=== PATIENT | female | born 1950 | race Caucasian/White ===

== ENCOUNTER 2023-08-27 08:10 | Day surgery (SDC) | payer MEDICARE, BC ==
[2023-08-27] VITALS (13 sets, daily range): BP systolic 102–131; BP diastolic 42–74; PULSE 52–63; RESP 14–20; TEMP 98; O2SAT 94–96
[~2023-08-27] VITALS: Ht 162.6 cm; Wt 77.3 kg
[2023-08-27 08:55] LABS: BASOPHILS % (AUTO) 0.5 % (0-1); EOSINOPHILS # (AUTO) 0.1 X10'3 (0-0.9); EOSINOPHILS % (AUTO) 0.9 % (0-6); HEMATOCRIT 42.7 % (35.0-45.0); HEMOGLOBIN 14.4 g/dl (12.0-16.0); LYMPHOCYTES # (AUTO) 1.9 X10'3 (1.1-4.8); LYMPHOCYTES % (AUTO) 27.4 % (21-51); MEAN CORPUSCULAR HEMOGLOBIN 30.6 PG (27.0-31.0); MEAN CORPUSCULAR HGB CONC 33.7 g/dL (33.0-36.5); MEAN CORPUSCULAR VOLUME 90.8 FL (78-98); MEAN PLATELET VOLUME 7.6 FL (7.4-10.4); MONOCYTES # (AUTO) 0.5 X10'3 (0-0.9); MONOCYTES % (AUTO) 7.3 % (2-12); NEUTROPHILS # (AUTO) 4.3 X10'3 (1.8-7.7); NEUTROPHILS % (AUTO) 63.9 % (42-75); PLATELET COUNT 262 X10'3 (140-440); RED CELL DISTRIBUTION WIDTH 13.2 % (11.5-14.5); WHITE BLOOD COUNT 6.8 X10'3 (4.5-11.0)
[2023-08-27] MEDS ORDERED: [UNRECOGNIZED DRUG - CODE] PO (09:03)
[2023-08-27] MEDS ORDERED: ROSU40TA22 PO (09:03)
[2023-08-27] MEDS ORDERED: ASPI81TA52 PO (09:03)
[2023-08-27] MEDS ORDERED: ACET-890 PO (09:03)
[2023-08-27] MEDS ORDERED: VITE1000C PO (09:03)
[2023-08-27] MEDS ORDERED: OMEG-166 PO (09:03)
[2023-08-27] MEDS ORDERED: FOLI1TAB27 PO (09:03)
[2023-08-27 09:05] LABS: ALBUMIN 4.3 G/DL (3.4-5.0); ANION GAP 8 (8-16); BLOOD UREA NITROGEN 13 MG/DL (7-18); BUN/CREATININE RATIO 17.1 (10.0-20.0); CALCIUM 9.4 MG/DL (8.5-10.1); CHLORIDE 107 MMOL/L (99-107); CREATININE 0.76 MG/DL (0.40-0.90); GLUCOSE 99 MG/DL (70-104); MAGNESIUM 2.1 MG/DL (1.5-2.4); POTASSIUM 3.8 MMOL/L (3.5-5.1); SODIUM 143 MMOL/L (135-145); TOTAL CARBON DIOXIDE 27.6 MMOL/L (24-32); eCRCL 57 ML/MIN; eGFR 75 ML/MIN
[2023-08-27 09:07] LABS: INR 0.9 INR; PROTHROMBIN TIME 10.2 SECONDS (9.0-12.0)
[2023-08-27] MEDS: normal saline 1,000 ML IV SCH (09:35)
[2023-08-27] MEDS: sodium bicarbonate 1meq/ml syr 150 ML in dextrose 5%-water 1,000 ML IV SCH (09:35)
[2023-08-27] MEDS: diphenhydrAMINE 25mg capsule PO PRN (09:36)
[2023-08-27] MEDS ORDERED: nitroGLYCERIN 500mcg/5mL D5W 5 ML IV ONE (12:49)
[2023-08-27] MEDS ORDERED: verapamil 2.5 mg/ml inj IV ONE (12:51)
[2023-08-27] MEDS ORDERED: midazolam 1 mg/ML 2ml injection ONE (12:51)
[2023-08-27] MEDS ORDERED: iohexol 350 MG/ML 50ML vial IV ONE (12:52)
[2023-08-27] MEDS ORDERED: fentaNYL/PF 50MCG/1 ML 2ML syringe ONE (12:52)
[2023-08-27] MEDS ORDERED: iohexol 350MG/ML 100ml bottle IV ONE (12:52)
[2023-08-27] MEDS ORDERED: LIDOcaine 1% (10mg/ml) 2ml vial ONE (12:52)
[2023-08-27] MEDS ORDERED: heparin 1,000unit/ml 10ml vial 10 ML ONE (12:52)
[2023-08-27] MEDS ORDERED: HYDROcodone/acetaminophen 5mg/325mg tablet PO PRN (14:30)
[2023-08-27] MEDS ORDERED: ondansetron/PF 4mg/2ml inj IV PRN (14:30)
[2023-08-27] MEDS ORDERED: HYDROcodone/acetaminophen 10/325mg tab PO PRN (14:30)
[2023-08-27] MEDS ORDERED: proCHLORperazine 10 MG/2 ml inj IV PRN (14:30)
== END 2023-08-27 17:45 | disposition home or self-care (01) ==
LOC: SSTAY O 08:10
PROVIDERS: ATTEND Internal Medicine Cardiovascular Disease
DX: R07.89 Other chest pain (principal); I20.9 Angina pectoris, unspecified; E78.5 Hyperlipidemia, unspecified; Z79.899 Other long term (current) drug therapy
CPT/HCPCS: 36415; 80048; 83735; 85025; 85610; 93005; 93458; 99152; 99153; A6258; J1644; J2250; J3010; J3490; J7030; J7070; Q0163; Q9967; A6402; C1894